=== PATIENT | female | born 1970 | race Caucasian/White ===

== ENCOUNTER 2020-01-06 13:07 | Emergency (ER) | payer BC ==
[~2020-01-06] VITALS: Ht 162.6 cm; Wt 72.7 kg
[2020-01-06 13:09] VITALS: BP 136/97; Ht 162.6 cm; Wt 72.7 kg
[2020-01-06 14:14] LABS: BASOPHILS 0.2 % (0-2); EOSINOPHILS 0.4 % (0-7); HEMATOCRIT 38.4 % (36.0-48.0); HEMOGLOBIN 13.2 g/dL (12-16); LYMPHOCYTES 30.8 % (15-50); MCH 29.6 pg (26.0-34.0); MCHC 34.4 g/dL (31.0-37.0); MCV 86.1 fL (80.0-100.0); MEAN PLATELET VOLUME 10.1 fL (7.4-10.4); MONOCYTES 3.1 % (2-11); NEUTROPHILS 65.5 % (40-80); PLATELET COUNT 203 10x3/uL (130-400); RBC 4.46 10x6/uL (4.00-5.40); RDW 14.1 % (11.5-14.5); WBC 4.5 10x3/uL (4.8-10.8)
[2020-01-06 14:15] LABS: CALC OSMOLALITY 273 mosm/kg (275-300); CALCIUM 9.1 mg/dL (8.5-10.1); CARBON DIOXIDE 26.3 mmol/L (21.0-32.0); CHLORIDE - SERUM 100 mmol/L (98-107); GLUCOSE 94 mg/dL (74-106); POTASSIUM - SERUM 3.1 mmol/L (3.5-5.1); SODIUM 136 mmol/L (136-145); UREA NITROGEN 18 mg/dL (7-18); eGFR NON AFRICAN AMERICAN 62 mL/min (90-120)
[2020-01-06 14:26] LABS: UDS - AMPHET NEGATIVE QUAL (NEGATIVE); UDS - BARB NEGATIVE QUAL (NEGATIVE); UDS - BENZO NEGATIVE QUAL (NEGATIVE); UDS - COCAINE NEGATIVE QUAL (NEGATIVE); UDS - OPIATE NEGATIVE QUAL (NEGATIVE); UDS - PCP NEGATIVE QUAL (NEGATIVE); UDS - THC NEGATIVE QUAL (NEGATIVE)
[2020-01-06 14:29] LABS: APTT 30.1 SECONDS (22.8-39.4); INR 0.98 (0.85-1.17); PROTIME 12.9 SECONDS (11.6-15.0)
[2020-01-06 14:32] LABS: BILIRUBIN NEGATIVE (NEGATIVE); KETONE NEGATIVE (NEGATIVE); NITRITE NEGATIVE (NEGATIVE); UROBILINOGEN NORMAL mg/dL (< 2)
[2020-01-06 14:33] LABS: ALBUMIN 3.7 g/dL (3.4-5.0); ALKALINE PHOSPHATASE 88 U/L (30-120); ALT (SGPT) 22 U/L (10-68); BILIRUBIN - TOTAL 0.43 mg/dL (0.2-1.3); CKMB 0.4 U/L (0.0-3.6); CREATINE KINASE 26 UL (21-215); MAGNESIUM - SERUM 2.1 mg/dL (1.8-2.4); PRO BNP 40 pg/mL (0-125); PROTEIN - SERUM 7.9 g/dL (6.4-8.2); THYROID STIMULATING HORMONE 0.76 uIU/mL (0.36-3.74)
[2020-01-06 14:34] LABS: TROPONIN-I < 0.017 ng/mL (0.000-0.060)
[2020-01-06 15:22] LABS: ERYTHROCYTE SEDIMENTATION RATE 57 mm/hr (0-30)
[2020-01-06] MEDS ORDERED: VISTARIL50 MG PO (17:05)
[2020-01-06] MEDS ORDERED: ZYRTEC10 MG PO (17:05)
[2020-01-06] MEDS ORDERED: PREDNISONE50 MG PO (17:05)
== END 2020-01-06 17:42 | disposition home or self-care (01) ==
LOC: D.ER 13:07
PROVIDERS: Family Medicine
DX: R20.2 Paresthesia of skin (principal); R79.82 Elevated C-reactive protein (CRP); R70.0 Elevated erythrocyte sedimentation rate; D84.1 Defects in the complement system; E87.6 Hypokalemia